=== PATIENT | male | born 1995 | race Hispanic/Latino ===

== ENCOUNTER 2019-08-10 11:11 | Emergency (ER) | payer SELFPAY ==
--- NOTE | 2019-08-10 13:06 | RAD ---
XR Toe(s) Rt Min 2 View HISTORY: Injury, right great toe pain FINDINGS: No fracture or dislocation is identified.
== END 2019-08-10 13:27 | disposition home or self-care (01) ==
LOC: ERS 11:11
DX: S90.111A Contusion of right great toe without damage to nail, initial encounter (principal); L30.9 Dermatitis, unspecified; W20.8XXA Other cause of strike by thrown, projected or falling object, initial encounter
CPT/HCPCS: 99283